=== PATIENT | female | born 1990 | race Caucasian/White ===

== ENCOUNTER 2017-07-06 01:31 | Emergency (ER) | payer OTHER, SELFPAY | END 2017-07-06 02:14 | disposition home or self-care (01) | PROVIDERS: Emergency Provider Emergency Medicine; Visit Provider Emergency Medicine | DX: S62.525A Nondisplaced fracture of distal phalanx of left thumb, initial encounter for closed fracture (principal); S60.012A Contusion of left thumb without damage to nail, initial encounter; W27.0XXA Contact with workbench tool, initial encounter | CPT/HCPCS: 73140; 99283 ==